=== PATIENT | female | born 1965 | race Asian ===

== ENCOUNTER 2020-08-06 11:10 | Outpatient (RCR) | payer OTHER | END 2020-09-24 13:16 | disposition home or self-care (01) | LOC: WSOH 11:10 | DX: M54.5 Low back pain (principal); Y99.0 Civilian activity done for income or pay; Z87.891 Personal history of nicotine dependence ==

== ENCOUNTER 2022-10-21 11:17 | Outpatient (RCR) | payer OTHER | END 2022-11-03 | disposition home or self-care (01) | LOC: WSOH | DX: S46.811D Strain of other muscles, fascia and tendons at shoulder and upper arm level, right arm, subsequent encounter (principal); S23.3XXD Sprain of ligaments of thoracic spine, subsequent encounter; Y99.0 Civilian activity done for income or pay ==

== ENCOUNTER 2022-11-30 13:52 | Outpatient (RCR) | payer OTHER | END 2022-12-01 | LOC: WSOH | DX: S46.811D Strain of other muscles, fascia and tendons at shoulder and upper arm level, right arm, subsequent encounter (principal); S23.3XXD Sprain of ligaments of thoracic spine, subsequent encounter; Y99.0 Civilian activity done for income or pay ==